=== PATIENT | female | born 1985 | race Caucasian/White ===

== ENCOUNTER 2017-01-15 04:33 | Emergency (ER) | payer OTHER ==
[~2017-01-15] VITALS: Ht 170.2 cm; Wt 65.8 kg
[~2017-01-15 04:33] MED LIST: CEPHALEXIN 500500 M2; NORCO 5-325 TA1 EACH PO; PRENATAL; PROMETHAZINE-C120 ML PO; TYLENOL SINUS; ZPAK PO
[2017-01-15 07:47] VITALS: BP 111/77
[2017-01-15] MEDS ORDERED: ERYTHROMYCIN E3.5 G1 OPHTHALMIC (07:51)
== END 2017-01-15 07:56 | disposition home or self-care (01) ==
LOC: ER 04:33
DX: H57.11 Ocular pain, right eye (principal)